=== PATIENT | male | born 2000 | race American Indian/Alaskan Native ===

== ENCOUNTER 2022-01-21 15:39 | Emergency (ER) | payer MEDICAID, SELFPAY ==
[2022-01-21 15:51] VITALS: BP 123/73; PULSE 66; RESP 18; TEMP 36.2; O2SAT 98; BMI 25.0
--- NOTE | 2022-01-21 16:02 | DI.RAD.S_ITS ---
PROCEDURE: XR CHEST 1V INDICATIONS: chest pain TECHNIQUE: One view of the chest was acquired. COMPARISON: [facility], , CHEST 2 VIEW, 02/03/2011, 8:45. FINDINGS: Surgical changes and devices: None. Lungs and pleura: Lungs are clear. No pleural effusions or pneumothorax. Mediastinum: Mediastinal contours appear normal. Heart size is normal. Bones and chest wall: No suspicious bony lesions. Overlying soft tissues appear unremarkable. IMPRESSION: No acute pulmonary process. Dictated by: Missy Capellan M.D. on 01/21/2022 at 17:06 Approved by: Missy Capellan M.D. on 01/21/2022 at 17:07
[2022-01-21 16:36] LABS: Prothrombin Time 11.2 SECONDS (10.1-12.7)
[2022-01-21 16:37] LABS: Alanine Aminotransferase 29 IU/L (<50); Albumin 4.8 g/dL (3.5-5.0); Albumin Globulin Ratio 1.2 (1.0-2.8); Alkaline Phosphatase 61 U/L (38-126); Aspartate Aminotransferase 33 IU/L (17-59); Bilirubin Total 0.6 mg/dL (0.2-1.3); Blood Urea Nitrogen 15 mg/dL (9-20); Calcium 9.6 mg/dL (8.4-10.2); Carbon Dioxide 29 mmol/L (22-32); Chloride 103 mmol/L (98-107); Creatine Kinase 60 U/L (55-170); Estimated Glomerular Filt Rate > 60.0 mL/min (>60); Globulin 4.1 g/dL (1.7-4.1); Glucose 105 mg/dL (70-100); HEMOLYSIS 20 (0-50); Lipase 49 U/L (23-300); Magnesium 1.9 mg/dL (1.6-2.3); Sodium 139 mmol/L (137-145); Total Protein 8.9 g/dL (6.3-8.2)
[2022-01-21 16:39] LABS: PTT Partial Thromboplastin Tim 30 SECONDS (26.4-36.2)
[2022-01-21 16:41] LABS: Add Manual Diff / Slide Review NO; Basophils Absolute Auto 100 /uL (0-100); Basophils Percent Auto 0.9 % (0-2); Eosinophils Absolute Auto 100 /uL (0-450); Hematocrit 44.9 % (41-53); Hemoglobin 15.3 g/dL (13.5-17.5); Lymphocytes Absolute Auto 1900 /uL (1100-4500); Lymphocytes Percent Auto 24.6 % (25-40); Mean Corpuscular HGB Conc 34.2 % (30-36); Mean Corpuscular Hemoglobin 30.2 PG (26-34); Mean Corpuscular Volume 88.3 fL (80-100); Monocytes Absolute Auto 500 /uL (0-900); Monocytes Percent Auto 6.1 % (3-14); Neutrophils Absolute Auto 5100 /uL (1500-7000); Neutrophils Percent Auto 67.4 % (50-75); Platelet Count 279 X10^3/uL (150-400); Red Blood Cell Count 5.08 X10^6/uL (4.5-5.9); White Blood Cell Count 7.6 X10^3/uL (4.5-11.0)
[2022-01-21 16:49] LABS: Troponin I < 0.012 ng/mL (0.01-0.034)
--- NOTE | 2022-01-21 18:44 | ED_ITS ---
HPI - Chest Pain General Chief Complaint: Chest Pain Stated Complaint: chest pains Time Seen by Provider: 01/21/22 18:31 Source: patient Mode of arrival: Ambulatory Limitations: no limitations History of Present Illness HPI narrative: Otherwise healthy 21-year-old male here for evaluation of left-sided chest discomfort. He states the symptoms been going on for the past couple days. He can reproduce the symptoms with palpation left side of his chest. He has no problems breathing. There was no trauma. He did golf the day prior to the onset of the symptoms. He states that he went to go golf today and the symptoms returned so he could not complete the entire round of golf. He was driving home and felt somewhat lightheaded. He stopped at a gas station and got some water. The lightheadedness resolved. Because of the combination the symptoms decided to come in for evaluation. Related Data Allergies Allergy/AdvReac Type Severity Reaction Status Date / Time No Known Drug Allergies Allergy Verified 01/21/22 15:54 Review of Systems Review of Systems ROS Unobtainable: All systems reviewed & are unremarkable except as noted in HPI and below Patient History Medical History No known health problems (07/09/12) Social History Smoking Status: Current every day smoker Smoking Status: Current every day smoker alcohol intake frequency: 3 or more drinks per day Substance Use Type: marijuana Exam Initial Vital Signs Initial Vital Signs: Vital Signs Temperature 97.1 F L 01/21/22 15:51 Pulse Rate 66 01/21/22 15:51 Respiratory Rate 18 01/21/22 15:51 Blood Pressure 123/73 01/21/22 15:51 Pulse Oximetry 98 01/21/22 15:51 Const General: cooperative and healthy appearing [facility] Head: normal to inspection Chest Chest: No crepitus and tenderness (Left anterior chest wall) Resp Auscultation: clear to auscultation bilaterally Cardio Rate: regular rate Skin General: no rashes or lesions noted Neuro General: patient alert, patient awake, patient oriented x3 and moves all extremities Extrem General: normal to inspection and capillary refill normal Psych Appearance: grossly normal and well kempt Course Orders Ordered: ED Orders 01/21/22 16:02 XR chest 1V Stat EKG-12 Lead Stat 01/21/22 16:09 Complete Blood Count AUTO DIFF Stat Comprehensive Metabolic Panel Stat Lipase Stat Magnesium Stat Partial Thromboplastin Time Stat Prothrombin Time INR Stat Troponin & CK Cardiac Panel Stat Vital Signs Vital signs: Vital Signs - 8 hr 01/21/22 15:51 Temperature 97.1 F L Pulse Rate 66 Respiratory Rate 18 Blood Pressure 123/73 Pulse Oximetry 98 MDM - Chest Pain Lab Data Attestation: I reviewed the patient's lab results. Result diagrams: 01/21/22 16:09 01/21/22 16:09 Labs: Lab Results 01/21/22 01/21/22 01/21/22 Range/Units 16:09 16:09 16:09 WBC 7.6 (4.5-11.0) X10^3/uL RBC 5.08 (4.5-5.9) X10^6/uL Hgb 15.3 (13.5-17.5) g/dL Hct 44.9 (41-53) % MCV 88.3 (80-100) fL MCH 30.2 (26-34) PG MCHC 34.2 (30-36) % RDW 13.0 (11.6-14.8) % Plt Count 279 (150-400) X10^3/uL Neut % (Auto) 67.4 (50-75) % Lymph % (Auto) 24.6 L (25-40) % [place] % (Auto) 6.1 (3-14) % Eos % (Auto) 1.0 L (2-4) % Baso % (Auto) 0.9 (0-2) % Neut # (Auto) 5100 (3222-7773) /uL Lymph # (Auto) 1900 (1820-2145) /uL [place] # (Auto) 500 (0-900) /uL Eos # (Auto) 100 (0-450) /uL Baso # (Auto) 100 (0-100) /uL PT 11.2 (10.1-12.7) SECONDS INR 1.0 (0.9-1.3) APTT 30 (26.4-36.2) SECONDS Sodium 139 (137-145) mmol/L Potassium 4.0 (3.4-5.1) mmol/L Chloride 103 (98-107) mmol/L Carbon Dioxide 29 (22-32) mmol/L BUN 15 (9-20) mg/dL Creatinine 0.75 (0.66-1.25) mg/dL Estimated GFR > 60.0 (>60) mL/min BUN/Creatinine Ratio 20.0 (6-22) Glucose 105 H (70-100) mg/dL Calcium 9.6 (8.4-10.2) mg/dL Magnesium 1.9 (1.6-2.3) mg/dL Total Bilirubin 0.6 (0.2-1.3) mg/dL AST 33 (17-59) IU/L ALT 29 (<50) IU/L Alkaline Phosphatase 61 (38-126) U/L Total Creatine Kinase 60 (55-170) U/L CK-MB (CK-2) TNP CK-MB (CK-2) Rel Index TNP Troponin I < 0.012 (0.01-0.034) ng/mL Total Protein 8.9 H (6.3-8.2) g/dL Albumin 4.8 (3.5-5.0) g/dL Globulin 4.1 (1.7-4.1) g/dL Albumin/Globulin Ratio 1.2 (1.0-2.8) Lipase 49 (23-300) U/L Imaging Data Chest x-ray: Radiologist's Impression: [address] [address] XRay Report Signed Patient: Edgardo Hall MR#: [id number] : 2000 Acct:[id number] Age/Sex: 21 / M Date of Service: 01/21/22 Loc: ED Accession Number: [id number] ?? Procedure: XR chest 1V Ordering Provider: Neela Rowley D.O. PROCEDURE:? XR CHEST 1V ? INDICATIONS:? chest pain ? TECHNIQUE:? One view of the chest was acquired.? ? COMPARISON:? [facility], , CHEST 2 VIEW, 02/03/2011, 8:45. ? FINDINGS:? ? Surgical changes and devices:? None.? ? Lungs and pleura:? Lungs are clear.? No pleural effusions or pneumothorax.? ? Mediastinum:? Mediastinal contours appear normal.? Heart size is normal.? ? Bones and chest wall:? No suspicious bony lesions.? Overlying soft tissues appear unremarkable.? ? IMPRESSION:? No acute pulmonary process. ? ? Dictated by: Missy Capellan M.D. on 01/21/2022 at 17:06 ? ? Approved by: Missy Capellan M.D. on 01/21/2022 at 17:07?? ECG Data Attestation: I personally reviewed and interpreted this ECG as follows: Interpretation: Sinus rhythm Ventricular rate is 71 Normal axis Normal QRS Normal QTC No ST T wave changes MDM Narrative Medical decision making narrative: Patient does have reproducible left-sided chest wall pain. Low suspicion for ACS. I do suspect musculoskeletal. Chest x-ray an EKG unremarkable. Discuss this with the patient. Hold on further workup for now. He was given return precautions. Expressed understanding and agreement. Discharge Plan Departure Patient Disposition: Home Clinical Impression: Anterior chest wall pain Instructions: DI for Atypical Chest Pain Activity Restrictions/Additional Instructions: Your workup and your exam here in the emergency department is very reassuring. I suspect this is muscular in origin. I do recommend that you avoid activities that make her symptoms worse. Contact your primary provider for follow-up. Return to the emergency department for any new or worsening symptoms. Referrals: Emma Sommers PA-C [Primary Care Provider] -
[2022-01-21 18:49] VITALS: BP 133/92; PULSE 66; O2SAT 97
== END 2022-01-21 18:50 | disposition home or self-care (01) ==
PROVIDERS: Emergency Medicine; Emergency Provider Emergency Medicine; Family Provider Physician Assistant; PCP Physician Assistant
DX: R07.89 Other chest pain (principal); F17.200 Nicotine dependence, unspecified, uncomplicated
CPT/HCPCS: 36415; 71045; 80053; 82550; 83690; 83735; 84484; 85025; 85610; 85730; 93005; 99283; 99284